=== PATIENT | female | born 1995 | race Caucasian/White ===

== ENCOUNTER 2017-09-07 08:22 | Emergency (ER) | payer OTHER ==
[2017-09-07] MEDS: ACETAMINOPHEN 325 MG TAB PO (09:09)
[2017-09-07] MEDS: IBUPROFEN 200 MG TAB PO (09:09)
== END 2017-09-07 09:58 | disposition home or self-care (01) ==
LOC: FTE 08:22
DX: J02.0 Streptococcal pharyngitis (principal); F17.210 Nicotine dependence, cigarettes, uncomplicated
CPT/HCPCS: 99283; Z7502

== ENCOUNTER 2018-01-27 21:37 | Emergency (ER) | payer SELFPAY, OTHER | END 2018-01-27 21:45 | disposition left against medical advice (07) | LOC: E/R 21:37 | DX: Z53.21 Procedure and treatment not carried out due to patient leaving prior to being seen by health care provider (principal) ==

== ENCOUNTER 2018-06-29 19:06 | Emergency (ER) | payer OTHER | END 2018-06-29 22:07 | disposition home or self-care (01) | LOC: FTE 19:06 | DX: L03.313 Cellulitis of chest wall (principal) | CPT/HCPCS: 99283; Z7502 ==